=== PATIENT | female | born 1955 | race Caucasian/White ===

== ENCOUNTER 2020-08-22 09:16 | Emergency (ER) | payer BC ==
[~2020-08-22] VITALS: Ht 154.9 cm; Wt 65.8 kg
[~2020-08-22 09:16] MED LIST: AUGMENTIN 875-1 EACH PO; MOBIC15 MG PO; NEXIUM40 M2 PO; ZANTAC 150MG T150 MG PO
[2020-08-22 10:43] LABS: ABSOLUTE NEUTROPHILS 1.9 thou/uL (1.4-8.2); BASOPHILS 0.9 % (0.0-2.0); EOSINOPHILS 0.1 % (0.0-3.0); HEMATOCRIT 41.9 % (37.0-47.0); HEMOGLOBIN 13.6 gm/dL (12.0-15.0); LYMPHOCYTES 28.2 % (24.0-44.0); MCH 27.6 pg (26.0-34.0); MCHC 32.5 g/dL (28.0-37.0); MCV 84.9 fL (80.0-100.0); MONOCYTES 8.2 % (1.0-8.0); PLATELET COUNT 127 thou/uL (150-400); POLYS 62.6 % (36.0-66.0); RBC 4.93 mil/uL (4.20-5.00); RDW 13.2 % (10.5-14.5); WBC 3.1 thou/uL (4.0-11.0)
[2020-08-22 10:53] LABS: ANION GAP 15 mmol/L (7-16); BUN 27 mg/dL (7-18); CALCIUM 8.8 mg/dL (8.5-10.1); CHLORIDE 103 mmol/L (98-107); CO2 25 mmol/L (21-32); GLUCOSE 75 mg/dL (74-106); POTASSIUM 3.9 mmol/L (3.5-5.1); SODIUM 143 mmol/L (136-145)
[2020-08-22 11:03] LABS: ALBUMIN 3.9 g/dL (3.4-5.0); DIRECT BILIRUBIN 0.1 mg/dL (<0.1-0.2); SGOT 33 U/L (15-37); SGPT 40 U/L (14-59); TOTAL BILIRUBIN 0.5 mg/dL (0.2-1.0); TOTAL PROTEIN 7.3 g/dL (6.4-8.2); TROPONIN-I <0.06 ng/mL (<0.06)
[2020-08-22 12:29] LABS: URINE BILIRUBIN NEGATIVE (Negative); URINE BLOOD NEGATIVE (Negative); URINE CLARITY CLEAR; URINE COLOR YELLOW; URINE GLUCOSE-RANDOM* NEGATIVE (Negative); URINE KETONES 3+ (Negative); URINE LEUKOCYTES-REFLEX NEGATIVE (Negative); URINE NITRITE-REFLEX NEGATIVE (Negative); URINE PROTEIN (DIPSTICK) NEGATIVE (Negative); URINE UROBILINOGEN 0.2 E.U./dl (0.2-1.0)
[2020-08-22] MEDS ORDERED: BENTYL 20 MG TA20 M1 PO (12:42)
[2020-08-22] MEDS ORDERED: ZOFRAN ODT4 MG PO (12:42)
[2020-08-22 13:23] VITALS: BP 122/68
--- NOTE | 2020-08-23 08:51 | EKG ---
[place] [address] [facility] [place] [address] ELECTROCARDIOGRAM REPORT Name: BRENT MAC Room #: [facility]#: [id number] Admission: 08/22/20 Attend Phys: Discharge: 08/22/20 Date of : 53 Report #: [id number] [facility] ED Test Date: 2020-08-22 Test Time: 12:09:10 Pat Name: BRENT MAC Department: Room: Gender: F Sew On Operator: josef : 1955 Requested By: Pilar Castro Order Number: [id number] MD: Mo Ray Measurements Intervals [place] Rate: 85 P: 47 NC: 142 QRS: 45 QRSD: 92 T: 4 QT: 355 QTc: 422 Interpretive Statements Sinus rhythm Borderline low voltage, extremity leads Compared to ECG 05/14/2018 14:45:22 No significant changes Electronically Signed On 08-23-2020 8:51:08 JELLY MAKER by Mo Ray [email or web address] <ELECTRONICALLY SIGNED> By: Mo Ray MD, [facility] 08/23/20 0851 [id number] Mo Ray MD, FACC /EPI
== END 2020-08-22 13:26 | disposition home or self-care (01) ==
LOC: ER 09:16
PROVIDERS: Emergency Medicine
DX: R10.30 Lower abdominal pain, unspecified (principal); K90.49 Malabsorption due to intolerance, not elsewhere classified; R11.0 Nausea; R53.81 Other malaise; R05 Cough; J45.909 Unspecified asthma, uncomplicated; K21.9 Gastro-esophageal reflux disease without esophagitis; M19.90 Unspecified osteoarthritis, unspecified site; Z79.2 Long term (current) use of antibiotics; Z79.899 Other long term (current) drug therapy

== ENCOUNTER 2020-08-27 11:14 | Emergency (ER) | payer BC ==
[~2020-08-27] VITALS: Ht 152.4 cm; Wt 59.9 kg
[~2020-08-27 11:14] MED LIST changes: +BENTYL 20 MG TA20 M1 PO; +ZOFRAN ODT4 MG PO
[2020-08-27 11:18] VITALS: BP 111/36
[2020-08-27 12:02] LABS: ABSOLUTE NEUTROPHILS 3.9 thou/uL (1.4-8.2); BASOPHILS 0.4 % (0.0-2.0); HEMOGLOBIN 13.4 gm/dL (12.0-15.0); LYMPHOCYTES 18.3 % (24.0-44.0); MCH 27.4 pg (26.0-34.0); MCHC 32.7 g/dL (28.0-37.0); MCV 83.8 fL (80.0-100.0); MONOCYTES 6.8 % (1.0-8.0); PLATELET COUNT 221 thou/uL (150-400); POLYS 74.5 % (36.0-66.0); RBC 4.89 mil/uL (4.20-5.00); RDW 13.2 % (10.5-14.5); WBC 5.3 thou/uL (4.0-11.0)
[2020-08-27 12:12] LABS: ANION GAP 12 mmol/L (7-16); BUN 21 mg/dL (7-18); CALCIUM 9.3 mg/dL (8.5-10.1); CHLORIDE 104 mmol/L (98-107); CO2 23 mmol/L (21-32); CREATININE 0.8 mg/dL (0.6-1.0); GLUCOSE 93 mg/dL (74-106); POTASSIUM 3.4 mmol/L (3.5-5.1); SODIUM 139 mmol/L (136-145)
[2020-08-27 12:15] LABS: APTT 27.3 Seconds (24.5-32.8); PROTIME 10.6 Seconds (9.3-11.4)
[2020-08-27 12:22] LABS: ALBUMIN 3.6 g/dL (3.4-5.0); MAGNESIUM 2.4 mg/dL (1.8-2.4); SGOT 33 U/L (15-37); SGPT 42 U/L (14-59); TOTAL BILIRUBIN 0.6 mg/dL (0.2-1.0); TOTAL PROTEIN 7.4 g/dL (6.4-8.2); TROPONIN-I <0.06 ng/mL (<0.06)
[2020-08-27 13:44] LABS: ICTOTEST (BILI CONFIRMATORY) Negative (Negative); URINE BILIRUBIN 1+ (Negative); URINE BLOOD NEGATIVE (Negative); URINE CLARITY CLEAR; URINE COLOR YELLOW; URINE GLUCOSE-RANDOM* NEGATIVE (Negative); URINE KETONES 2+ (Negative); URINE LEUKOCYTES-REFLEX NEGATIVE (Negative); URINE NITRITE-REFLEX NEGATIVE (Negative); URINE PROTEIN (DIPSTICK) TRACE (Negative); URINE SPECIFIC GRAVITY 1.025 (1.005-1.035); URINE UROBILINOGEN 0.2 E.U./dl (0.2-1.0)
[2020-08-27 13:50] VITALS: BP 124/71
--- NOTE | 2020-08-27 14:25 | NUR ---
65 y/o female presenting to the ED c/o increasing shortness of air and fatigue for the past 2-3 days. Of note, patient was diagnosed with COVID-19 on 05/17/20 at the [place]. Patient also relays testing positive gain on 08/16/2020 and employed at the [employer]. CXR reveals bilateral viral type infiltrates with a K+ level of 3.4. Has been started on IV Rocephin, Zithromax and Solumedrol and admitted for Covid positive exertional Hypoxia with acute Hypoxic respiratory failure. Patient per ED assessment came in and remains alert and oriented times 4. Daughter Connie Lassiter at home# [phone] or Work# of [phone] is listed as her next of kin. Have asked MD to review need for therapy orders as patient has up ad jessica orders for now. Once medical team completes assessment and initial treatment; CM will follow for d/c needs.
[2020-08-27] MEDS ORDERED: VOLTAREN GEL 1100 G1 TOP (16:38)
[2020-08-27 20:07] VITALS: BP 120/73
--- NOTE | 2020-08-28 15:11 | EKG ---
[place] [address] [facility] [place] [address] ELECTROCARDIOGRAM REPORT Name: BRENT MAC Room #: [facility]#: [id number] Admission: 08/27/20 Attend Phys: Discharge: 08/27/20 Date of : 53 Report #: [id number] [facility] [place] [place] ED Test Date: 2020-08-27 Test Time: 11:46:58 Pat Name: BRENT MAC Department: Room: [facility] Gender: F Superintendent Building: [place] : 1955 Requested By: Frank Ochoa Order Number: [id number] MD: Wilbur Vasquez Measurements Intervals [place] Rate: 90 P: 51 VA: 136 QRS: 42 QRSD: 84 T: 17 QT: 331 QTc: 405 Interpretive Statements Sinus rhythm No significant abnormality Compared to ECG 08/22/2020 12:09:10 No significant changes Electronically Signed On 08-28-2020 15:11:32 DRAPERY ESTIMATOR by Wilbur Vasquez [email or web address] <ELECTRONICALLY SIGNED> By: Wilbur Vasquez MD, [facility] 08/28/20 1511 1146 1146 Wilbur Vasquez MD, FACC /EPI
== END 2020-08-27 20:10 | disposition short-term general hospital (02) ==
LOC: ER 11:14 → EROBS 13:54
PROVIDERS: Emergency Medicine
DX: J18.9 Pneumonia, unspecified organism (principal); Z20.828 Contact with and (suspected) exposure to other viral communicable diseases; M19.90 Unspecified osteoarthritis, unspecified site; K21.9 Gastro-esophageal reflux disease without esophagitis